=== PATIENT | female | born 1990 | race African-American/Black ===

== ENCOUNTER 2016-11-03 13:14 | Emergency (ER) | payer OTHER ==
[~2016-11-03] VITALS: Ht 167.6 cm; Wt 89.0 kg
[2016-11-03 13:22] VITALS: Ht 167.6 cm; Wt 89.0 kg
[2016-11-03] MEDS ORDERED: KETOROLAC 30 MG INJ IM STA (14:03)
--- NOTE | 2016-11-03 15:55 | RADRPT ---
PROCEDURE: XR Chest. CLINICAL INDICATION: Chest pain. TECHNIQUE: XR PA Chest 1 View COMPARISON: None available. FINDINGS: The lungs are clear. No focal opacification is seen. No pneumothorax or pleural effusion is seen. The cardiomediastinal silhouette is unremarkable. The osseous structures are grossly unremarkable. IMPRESSION: No evidence of acute cardiopulmonary disease. RPTAT: QQ .Abelino Camargo MD, MD Date Time Electronically viewed and signed by .Abelino Camargo MD, on 11/03/2016 15:54 .A/
--- NOTE | 2016-11-03 15:57 | RADRPT ---
PROCEDURE: Thoracic Spine. CLINICAL INDICATION: Back Pain TECHNIQUE: AP and lateral views of the thoracic spine are available for review COMPARISON: None available FINDINGS: Alignment is intact and normal. The vertebral body heights and intervertebral disk heights are all preserved. The normal thoracic kyphosis is present. No fracture or dislocation is seen. No radiop aque foreign body is identified. The paraspinous soft tissues are unremarkable. IMPRESSION: Unremarkable thoracic spine x-rays series. RPTAT: QQ .Abelino Camargo MD, Date Time Electronically viewed and signed by .Abelino Camargo MD, on 11/03/2016 15:56 .A/
--- NOTE | 2016-11-03 15:58 | RADRPT ---
PROCEDURE: XR Cervical Spine. CLINICAL INDICATION: Neck pain. TECHNIQUE: Three views of the cervical spine were performed. The images were reviewed on a PACS wo [employer]. COMPARISON: None. FINDINGS: The vertebral body alignment, height and osseous mineralization are normal. There is reversal of the normal cervical lordosis. There is no facet arthropathy. The uncovertebral joints are unremarkable . The intervertebral disc spaces are well maintained. There are no abnormal calcifications. The prev ertebral soft tissues are normal. No radiopaque foreign bodies are identified. In the setting of tra wilfredo, CT would be advisable for more complete assessment to exclude occult fracture, as deemed clinic ally necessary. IMPRESSION: Reversal of the normal cervical lordosis. Otherwise, unremarkable cervical spine x-rays series. RPTAT: QQ .Abelino Camargo MD, Date Time Electronically viewed and signed by .Abelino Camargo MD, on 11/03/2016 15:58 .A/
[2016-11-03] MEDS ORDERED: NAPR-260 PO (16:20)
[2016-11-03] MEDS ORDERED: FLUC150T17 PO (16:45)
--- NOTE | 2016-11-03 19:47 | ERD ---
ER Documentation Chief Complaint Date/Time DATE: 11/03/16 TIME: 19:43 Chief Complaint LOW BACK PAIN SINCE THIS AM HPI This is a 25-year-old female presenting to emergency department with upper back pain starting earlier today. Patient states she woke up and felt a "crack" in her upper back and began having pain. No neck pain or neck stiffness. No cough , shortness breath or difficulty breathing. No chest pain or chest wall pain. Patient states at times when she takes a deep breath she has pain to her thoracic spine. No wheezing, labored breathing or stridor. No past medical or surgical history. Patient is not currently taking any medications. No fevers or chills. Patient also states she feels like she is about to get a yeast infection and is requesting medication. ROS All systems reviewed and are negative except as per history of present illness. Medications Home Meds Active Scripts Fluconazole* (Diflucan*) 150 Mg Tablet, 150 MG PO DAILY, #1 TAB Prov:CIERRA ZUNIGA NP 11/03/16 Naproxen* (Naprosyn*) 500 Mg Tablet, 500 MG PO BID Y for PAIN AND/OR INFLAMMATION, #30 TAB Prov:CIERRA ZUNIGA NP 11/03/16 Allergies Allergies: Coded Allergies: No Known Allergy (Unverified , 11/03/16) PMhx/Soc Medical and Surgical Hx: pt denies Medical Hx, pt denies Surgical Hx Hx Alcohol Use: No Hx Substance Use: No Hx Tobacco Use: No Smoking Status: Never smoker Physical Exam Vitals Vital Signs Date Time Temp Pulse Resp B/P Pulse Ox O2 Delivery O2 Flow Rate FiO2 11/03/16 13:22 98.7 79 18 123/60 97 Physical Exam Const: No acute distress, alert Head: Atraumatic Eyes: Normal Conjunctiva ENT: Normal External Ears, Nose and Mouth. Neck: Full range of motion..~ No meningismus. Resp: Clear to auscultation bilaterally. No wheezing, rhonchi or crackles. No stridor or labored breathing. No intercostal retractions. Cardio: Regular rate and rhythm, no murmurs Abd: Soft, non tender, non distended. Normal bowel sounds Skin: No petechiae or rashes Back: No midline or flank tenderness Ext: No cyanosis, or edema Neur: Awake and alert Psych: Normal Mood and Affect Results 24 hrs Current Medications Medications (Trade) Dose Ordered Sig/Brian Route PRN Reason Start Time Stop Time Status Last Admin Dose Admin Ketorolac Tromethamine (Toradol) 30 mg ONCE STAT IM 11/03/16 14:03 11/03/16 14:05 DC 11/03/16 15:05 Procedures/MDM [place] [id number] Radiology Main Line: [phone] DIAGNOSTIC IMAGING REPORT Patient: DARRELL CLEVELAND : 1990 Age: 25 Sex: F MR #: [id number] DOS: 11/03/16 1403 Ordering MD: CIERRA YORK NP Location: [facility] Room/Bed: PROCEDURE: XR Chest. CLINICAL INDICATION: Chest pain. TECHNIQUE: XR PA Chest 1 View COMPARISON: None available. FINDINGS: The lungs are clear. No focal opacification is seen. No pneumothorax or pleural effusion is seen. The cardiomediastinal silhouette is unremarkable. The osseous structures are grossly unremarkable. IMPRESSION: No evidence of acute cardiopulmonary disease. [place] [address] Radiology Main Line: [phone] DIAGNOSTIC IMAGING REPORT Patient: DARRELL CLEVELAND : 1990 Age: 25 Sex: F MR #: [id number] DOS: 11/03/16 1403 Ordering MD: CIERRA YORK NP Location: [facility]TE Room/Bed: PROCEDURE: XR Cervical Spine. CLINICAL INDICATION: Neck pain. TECHNIQUE: Three views of the cervical spine were performed. The images were reviewed on a PACS workstation. COMPARISON: None. FINDINGS: The vertebral body alignment, height and osseous mineralization are normal. There is reversal of the normal cervical lordosis. There is no facet arthropathy. The uncovertebral joints are unremarkable. The intervertebral disc spaces are well maintained. There are no abnormal calcifications. The prevertebral soft tissues are normal. No radiopaque foreign bodies are identified. In the setting of trauma, CT would be advisable for more complete assessment to exclude occult fracture, as deemed clinically necessary. IMPRESSION: Reversal of the normal cervical lordosis. Otherwise, unremarkable cervical spine x-rays series. [place] [address] Radiology Main Line: [phone] DIAGNOSTIC IMAGING REPORT Patient: DARRELL CLEVELAND : 1990 Age: 25 Sex: F MR #: [id number] DOS: 11/03/16 1403 Ordering MD: CIERRA YORK NP Location: [facility]TE Room/Bed: PROCEDURE: Thoracic Spine. CLINICAL INDICATION: Back Pain TECHNIQUE: AP and lateral views of the thoracic spine are available for review COMPARISON: None available FINDINGS: Alignment is intact and normal. The vertebral body heights and intervertebral disk heights are all preserved. The normal thoracic kyphosis is present. No fracture or dislocation is seen. No radiopaque foreign body is identified. The paraspinous soft tissues are unremarkable. IMPRESSION: Unremarkable thoracic spine x-rays series. MDM: This is a 25-year-old female presenting to emergency department with thoracic back pain starting earlier today. Patient given Toradol 30 mg IM while in the ED and states pain has improved somewhat. X-ray cervical and thoracic spine reviewed by radiologist as unremarkable and reversal of the normal cervical lordosis otherwise unremarkable. Chest x-ray reviewed by radiologist as unremarkable. Patient appears in no acute distress. No signs or symptoms of respiratory distress. Vital signs are stable and patient remains afebrile. Differential diagnosis includes but not limited to pneumonia, bronchitis, pleurisy, costochondritis, gastroesophageal reflux,musculoskeletal chest pain and esophageal spasm. Low suspicion for acute coronary syndrome, pulmonary embolism, pneumothorax, aortic dissection and myocardial infarction. Patient is appropriate for outpatient management and will be discharged as stable. Patient will be given prescription for Naprosyn and Diflucan. Instructed patient to follow up with primary care provider in the next 24-48 hours. Resources provided. Return to ED for worsening pain, abdominal pain, vomiting, diarrhea, high fever or any new or worsening symptoms. Patient verbalizes understanding. All questions answered at discharge. Disclaimer: Inadvertent spelling and grammatical errors are likely due to EHR/ dictation software use and do not reflect on the overall quality of patient care. Also, please note that the electronic time recorded on this note does not necessarily reflect the actual time of the patient encounter. Departure Diagnosis: Primary Impression: Back pain Back pain location: thoracic back pain Chronicity: acute Back pain laterality: bilateral Qualified Code: M54.6 - Acute bilateral thoracic back pain Condition: Stable Patient Instructions: Back Pain (Acute Or Chronic) Referrals: [facility], [facility] YOU HAVE RECEIVED A MEDICAL SCREENING EXAM AND THE RESULTS INDICATE THAT YOU DO NOT HAVE A CONDITION THAT REQUIRES URGENT TREATMENT IN THE EMERGENCY DEPARTMENT. FURTHER EVALUATION AND TREATMENT OF YOUR CONDITION CAN WAIT UNTIL YOU ARE SEEN IN YOUR DOCTORS OFFICE WITHIN THE NEXT 1-2 DAYS. IT IS YOUR RESPONSIBILITY TO MAKE AN APPOINTMENT FOR FOLOW-UP CARE. IF YOU HAVE A PRIMARY DOCTOR --you should call your primary doctor and schedule an appointment IF YOU DO NOT HAVE A PRIMARY DOCTOR YOU CAN CALL OUR PHYSICIAN REFERRAL HOTLINE AT IF YOU CAN NOT AFFORD TO SEE A PHYSICIAN YOU CAN CHOSE FROM THE FOLLOWING [facility] [email or web address]. [facility] [email or web address] [facility]. [facility] [address] [facility] [address] [facility] [address] [facility]. [facility] [address] [facility]. [facility] YOU HAVE RECEIVED A MEDICAL SCREENING EXAM AND THE RESULTS INDICATE THAT YOU DO NOT HAVE A CONDITION THAT REQUIRES URGENT TREATMENT IN THE EMERGENCY DEPARTMENT. FURTHER EVALUATION AND TREATMENT OF YOUR CONDITION CAN WAIT UNTIL YOU ARE SEEN IN YOUR DOCTORS OFFICE WITHIN THE NEXT 1-2 DAYS. IT IS YOUR RESPONSIBILITY TO MAKE AN APPOINTMENT FOR FOLOW-UP CARE. IF YOU HAVE A PRIMARY DOCTOR --you should call your primary doctor and schedule and appointment IF YOU DO NOT HAVE A PRIMARY DOCTOR YOU CAN CALL OUR PHYSICIAN REFERRAL HOTLINE AT . IF YOU CAN NOT AFFORD TO SEE A PHYSICIAN YOU CAN CHOSE FROM THE FOLLOWING [facility] INSTITUTIONS: [facility] [address] [place] [address] [facility] [address] [place] [address] [facility] [address] [place] [address] Additional Instructions: Call your primary care doctor TOMORROW for an appointment during the next 2-3 days.See the doctor sooner or return here if your condition worsens before your appointment time. Return to ED for any high fever, chest pain, difficulty breathing, shortness breath, wheezing, vomiting, diarrhea, abdominal pain or any new or worsening symptoms. CIERRA ZUNIGA NP Nov 03, 2016 19:47
== END 2016-11-03 16:49 | disposition home or self-care (01) ==
LOC: FTE 13:14
DX: M54.6 Pain in thoracic spine (principal)
CPT/HCPCS: 71010; 72040; 72072; 96372; J1885; Z7502